=== PATIENT | male | born 1945 ===

== ENCOUNTER 2017-11-24 09:14 | Emergency (ER) | payer MEDICARE, OTHER ==
[2017-11-24 09:14] VITALS: BMI 30.9
[2017-11-24 09:27] VITALS: RESP 18; O2SAT 100
[2017-11-24] MEDS ORDERED: Lidocaine 5% Patch TD STA (10:02)
[2017-11-24] MEDS ORDERED: Lidocaine 5% Patch TD ONE (10:09)
[2017-11-24 11:02] VITALS: BP 182/80; PULSE 82; TEMP 97.4
--- NOTE | 2017-11-24 11:02 | C.PDOC ---
History Of Present Illness 72 year old male with PMHx of DM presents to the ED for evaluation of right sided paralumbar pain, swelling to B/L lower extremities left> right. Patient reports he fell months ago and since has been feeling pain and noticing the swelling to his legs. Patient reports when he walks long distances he feels like his left knee gives out. Patient denies CP, SOB, 2 cardiac cath but no STENT, dyspnea on exertion. Time Seen by Provider: 11/24/17 09:53 Chief Complaint (Nursing): Back Pain History Per: Patient History/Exam Limitations: no limitations Onset/Duration Of Symptoms: Days Current Symptoms Are (Timing): Still Present Quality Of Discomfort: "Pain" Previous Symptoms: Back Pain Exacerbating Factor(s): Turning Recent travel outside of the [place]: No Additional History Per: Patient Past Medical History Reviewed: Historical Data, Nursing Documentation, Vital Signs Vital Signs: Last Vital Signs Temp 97.4 F L 11/24/17 11:01 Pulse 82 11/24/17 11:01 Resp 18 11/24/17 11:01 BP 182/80 H 11/24/17 11:01 Pulse Ox 100 11/24/17 11:11 - Medical History PMH: Diabetes, HTN, Hypercholesterolemia Denies: Chronic Kidney Disease Surgical History: Cholecystectomy - [facility] Procedures CLOSED ENDOSCOPIC BIOPSY OF LARGE INTESTINE (08/05/13) DX ULTRASOUND NEC (01/05/13) PERCUTAN NEEDLE BIOPSY OF PROSTATE (01/05/13) Family History: States: Unknown Family Hx - Social History Hx Tobacco Use: No Hx Alcohol Use: No Hx Substance Use: No - Immunization History Hx Tetanus Toxoid Vaccination: No Hx Influenza Vaccination: No Hx Pneumococcal Vaccination: No Review Of Systems Constitutional: Negative for: Fever, Chills Cardiovascular: Negative for: Chest Pain Respiratory: Negative for: Shortness of Breath, SOB with Excertion Musculoskeletal: Positive for: Back Pain, Leg Pain Skin: Negative for: Rash Neurological: Negative for: Weakness, Numbness Physical Exam - Physical Exam Appears: Non-toxic, No Acute Distress Skin: Normal Color, Warm, Dry Head: Atraumatic, Normacephalic Eye(s): bilateral: Normal Inspection Nose: No Discharge Oral Mucosa: Moist Neck: Normal ROM, Supple Chest: Symmetrical Cardiovascular: Rhythm Regular, No Murmur Respiratory: Normal Breath Sounds, No Rales, No Rhonchi, No Wheezing Gastrointestinal/Abdominal: Soft, No Tenderness, No Guarding, No Rebound Back: Paraspinal Tenderness (left ) Extremity: Normal ROM, No Tenderness, Capillary Refill (< 2 seconds), Swelling ( pitting edema B/L legs up to mid malin, left > right ) Pulses: Left Dorsalis Pedis: Normal, Right Dorsalis Pedis: Normal Neurological/Psych: Oriented x3, Normal Speech, Normal Sensation, Normal Reflexes Gait: Steady ED Course And Treatment O2 Sat by Pulse Oximetry: 100 (ON RA) Pulse Ox Interpretation: Normal Medical Decision Making Medical Decision Making: Impression: back pain, B/L leg swelling Plan: * Lidoderm 1 ea TD * Motrin 600 mg PO * Tylenol [address] Reddy was called and spoke with him regarding the patient who agreed with the plan and patient will be d/c home. Disposition Discussed With : Randa Reddy Counseled Patient/Family Regarding: Need For Followup - Disposition Referrals: Randa Reddy MD [Staff Provider] - Disposition: HOME/ ROUTINE Disposition Time: 11:03 Condition: STABLE Prescriptions: diaZEpam [Valium] 5 mg PO TID #12 tab Ibuprofen [Motrin] 600 mg PO TID #15 tab Instructions: Dependent Edema (DC) Forms: [facility] (Guamanian), Gen Discharge Inst Guamanian - POA Present On Arrival: None - Clinical Impression Clinical Impression: Low back pain, Pedal edema - Scribe Statement The provider has reviewed the documentation as recorded by the Scribe Ambrocio Andrade All medical record entries made by the Scribe were at my direction and personally dictated by me. I have reviewed the chart and agree that the record accurately reflects my personal performance of the history, physical exam, medical decision making, and the department course for this patient. I have also personally directed, reviewed, and agree with the discharge instructions and disposition.
== END 2017-11-24 11:16 | disposition home or self-care (01) ==
LOC: C.ER 09:14
DX: M54.5 Low back pain (principal); R60.0 Localized edema